=== PATIENT | male | born 1965 | race African-American/Black ===

== ENCOUNTER 2019-06-28 14:14 | Emergency (ER) | payer MEDICAID ==
[~2019-06-28] VITALS: Ht 188 cm; Wt 109.0 kg
[~2019-06-28 14:14] MED LIST: DIGO125T20 PO; SPIR25TA PO
[2019-06-28] MEDS: ACETAMINOPHEN 500MG TABLET PO ONE (16:22)
[2019-06-28 17:01] VITALS: BP 177/90
== END 2019-06-28 17:04 | disposition home or self-care (01) ==
LOC: ER 14:29
DX: S06.0X0A Concussion without loss of consciousness, initial encounter (principal); S09.8XXA Other specified injuries of head, initial encounter; V49.49XA Driver injured in collision with other motor vehicles in traffic accident, initial encounter; Y93.89 Activity, other specified; Y92.89 Other specified places as the place of occurrence of the external cause; Y99.8 Other external cause status; I10 Essential (primary) hypertension; Z86.73 Personal history of transient ischemic attack (TIA), and cerebral infarction without residual deficits
CPT/HCPCS: 99284